=== PATIENT | male | born 1975 | race Two or more races ===

== ENCOUNTER 2016-10-11 18:46 | Inpatient (IN) | payer OTHER, MEDICAID ==
[2016-10-11 19:57] VITALS: BP 144/94
[2016-10-11] MEDS: Morphine Sulfate 2 mg/mL 1mL Syr IVP PRN (20:41)
[2016-10-11] MEDS ORDERED: Albuterol Nebulizer 2.5mg/3mL IH PRN (21:28)
[2016-10-11] MEDS ORDERED: guaiFENesin 200 MG/10 ML UDC PO PRN (21:28)
[2016-10-11] MEDS: metroNIDAZOLE 500mg/NS 100mL 500 MG/100 ML BAG IV SCH (22:19)
[2016-10-11] MEDS: Levofloxacin 500mg/100mL 500 MG/100 ML BAG IV SCH (23:30)
[2016-10-11] MEDS: Atorvastatin Calcium 10 MG TAB PO SCH (23:54)
[2016-10-12] MEDS: Morphine Sulfate 2 mg/mL 1mL Syr IVP PRN ×7 (01:11→20:26)
[2016-10-12] MEDS: metroNIDAZOLE 500mg/NS 100mL 500 MG/100 ML BAG IV SCH ×3 (05:23→20:26)
[2016-10-12] MEDS: INSULIN ASPART, RECOMBINANT 100 UNITS/ML SUBQ SCH ×4 (06:33→21:22)
[2016-10-12 07:32] LABS: INR 1.06 (0.5-1.4); PROTHROMBIN TIME (TEST) 10.5 SECONDS (9.5-11.5)
[2016-10-12 07:50] LABS: % BASOPHILS 0.2 % (0.0-2.0); % EOSINOPHILS 0.3 % (0.0-5.0); % LYMPHOCYTES 12.4 % (20.0-50.0); % MONOCYTES 7.5 % (2.0-10.0); % NEUTROPHILS 79.6 % (40.0-80.0); HEMATOCRIT 38.6 % (39.0-49.0); HEMOGLOBIN 13.5 gm/dL (13.2-17.3); MEAN CELL VOLUME 79.5 fl (80-99); MEAN CORPUSCULAR HEMOGLOBIN 27.8 pg (26.0-30.0); MEAN PLATELET VOLUME 7.6 fl; NEUTROPHILE ABSOLUTE 6.6 Th/cmm (1.8-8.0); PLATELET COUNT 115 Th/cmm (150-400); RED BLOOD COUNT 4.85 Mil/cmm (4.30-5.70); RED CELL DISTRIBUTION WIDTH 14.1 % (11.5-20.0); WHITE BLOOD COUNT 8.2 Th/cmm (4.8-10.8)
[2016-10-12 07:53] LABS: ALKALINE PHOSPHATASE 78 U/L (34-104); ANION GAP 8.5 (7.0-16.0); BILIRUBIN,TOTAL 1.9 mg/dL (0.3-1.0); BUN - UREA NITROGEN 10 mg/dL (7-25); BUN/CREATININE RATIO 16.7; CALCIUM SERUM 9.3 mg/dL (8.6-10.3); CARBON DIOXIDE 26.1 mEq/L (21.0-31.0); CHLORIDE 99 mEq/L (98-107); CREATININE - SERUM 0.6 mg/dL (0.7-1.3); GLUCOSE 181 mg/dL (70-105); MAGNESIUM 1.8 mg/dL (1.9-2.7); POTASSIUM SERUM 3.6 mEq/L (3.5-5.1); SGOT 14 U/L (13-39); SGPT/ALT 19 U/L (7-52); SODIUM SERUM 130 mEq/L (136-145)
[2016-10-12 08:33] LABS: URINE BILIRUBIN SMALL (NEGATIVE); URINE BLOOD SMALL (NEGATIVE); URINE COLOR YELLOW; URINE GLUCOSE (UA) 500 mg/dL (NEGATIVE); URINE KETONE 40 mg/dL (NEGATIVE); URINE PROTEIN TRACE mg/dL (NEGATIVE)
[2016-10-12 08:34] LABS: URINE BACTERIA OCCASIONAL /hpf (NONE SEEN); URINE EPITHELIAL CELLS FEW /lpf (FEW)
[2016-10-12] MEDS ORDERED: Meperidine 50 mg/mL 1mL Syr ONE (08:48)
[2016-10-12] MEDS ORDERED: Midazolam 1mg/ml 2 ml vial IV ONE (08:48)
[2016-10-12] MEDS ORDERED: Lidocaine 2% Gel 5 mL TP ONE (09:08)
[2016-10-12 09:36] LABS: BNP 26.7 pg/mL (5.0-100.0)
--- NOTE | 2016-10-12 11:08 | Consultation ---
REFERRING PHYSICIAN: Dr. Lora. REASON FOR CONSULTATION: Perirectal abscess. Thank you for referring this patient to me. HISTORY OF PRESENT ILLNESS: A 41-year-old male who apparently has had rectal pain for the last 5 days with fever associated. He went to [facility] yesterday and underwent a CT scan, which showed left perirectal abscess. PAST MEDICAL HISTORY: Includes hypertension, diabetes mellitus and hypercholesterolemia. MEDICATIONS: He takes metformin, atorvastatin and losartan. LABORATORY STUDIES: At this facility showed WBC to be normal, platelet count slightly low at 115. The chemistry is within normal limits. His blood sugar was 246 previously. PHYSICAL EXAMINATION: Unremarkable except in the perirectal area where there appears to be some swelling in the left perirectal region as noted in the CT scan. IMPRESSION: 1. Gallstones. 2. Hypertension. 3. Diabetes mellitus. 4. Hypercholesterolemia. 5. Perirectal abscess. PLAN: We will sigmoidoscopy to determine the rectum status for any internal hemorrhoids or any connecting abscess or fistula. We will drain the abscess when located. Informed consent discussed with the patient. JOB# [id number]
--- NOTE | 2016-10-12 12:38 | Operative Report ---
PREOPERATIVE DIAGNOSES: 1. Left perirectal abscess. 2. Cholelithiasis. 3. Diabetes mellitus with poor control. 4. Hypertension. 5. Hypercholesterolemia. POSTOPERATIVE DIAGNOSES: 1. Left perirectal abscess. 2. Cholelithiasis. 3. Diabetes mellitus with poor control. 4. Hypertension. 5. Hypercholesterolemia. OPERATION DONE: 1. Sigmoidoscopy. 2. Left perirectal abscess (?). SURGEON: Saqib Winslow MD ANESTHESIA: General. ANESTHESIOLOGIST: Richard Soriano M.D. PROCEDURE: The patient was given general anesthesia. He was then placed in dorsal lithotomy position. The perineum was prepped. Sigmoidoscopy was done to 15 cm. No internal pathology was noted. Palpation of the perirectal area on the left side in particular as noted on the CT scan showed some questionable fluctuant area. An incision was made over this region and with finger dissection and instrumentation, attempt at unroofing the abscess was done. None was found, however. Palpation was done in all quadrants of the anal region. No fluctuation was noted, that would be suspicious for an abscess. The wound was packed with iodoform gauze and culture was taken. The patient tolerated the procedure well. Plan will be to repeat the CT scan and GI evaluation if necessary. [facility]# [id number] EN
--- NOTE | 2016-10-12 17:09 | Internal Medicine Prog Note ---
Internal Medicine Subjective - Subjective Service Date: 10/12/16 (HNP DICTATED) Internal Medicine Objective - Results Result Diagrams: 10/12/16 06:49 10/12/16 06:49 Recent Labs: Laboratory Last Values WBC 8.2 Th/cmm (4.8-10.8) 10/12/16 06:49 RBC 4.85 Mil/cmm (4.30-5.70) 10/12/16 06:49 Hgb 13.5 gm/dL (13.2-17.3) 10/12/16 06:49 Hct 38.6 % (39.0-49.0) L 10/12/16 06:49 MCV 79.5 fl (80-99) L 10/12/16 06:49 MCH 27.8 pg (26.0-30.0) 10/12/16 06:49 MCHC Differential 35.0 pg (28.0-36.0) 10/12/16 06:49 RDW 14.1 % (11.5-20.0) 10/12/16 06:49 Plt Count 115 Th/cmm (150-400) L 10/12/16 06:49 MPV 7.6 fl 10/12/16 06:49 Neutrophils % 79.6 % (40.0-80.0) 10/12/16 06:49 Lymphocytes % 12.4 % (20.0-50.0) L 10/12/16 06:49 Monocytes % 7.5 % (2.0-10.0) 10/12/16 06:49 Eosinophils % 0.3 % (0.0-5.0) 10/12/16 06:49 Basophils % 0.2 % (0.0-2.0) 10/12/16 06:49 PT 10.5 SECONDS (9.5-11.5) 10/12/16 06:49 INR 1.06 (0.5-1.4) 10/12/16 06:49 PTT (Actin FS) 30.9 SECONDS (26.0-38.0) 10/12/16 06:49 Sodium 130 mEq/L (136-145) L 10/12/16 06:49 Potassium 3.6 mEq/L (3.5-5.1) 10/12/16 06:49 Chloride 99 mEq/L (98-107) 10/12/16 06:49 Carbon Dioxide 26.1 mEq/L (21.0-31.0) 10/12/16 06:49 Anion Gap 8.5 (7.0-16.0) 10/12/16 06:49 BUN 10 mg/dL (7-25) 10/12/16 06:49 Creatinine 0.6 mg/dL (0.7-1.3) L 10/12/16 06:49 Est GFR ( Amer) > 60.0 ml/min 10/12/16 06:49 Est GFR (Non-Af Amer) > 60.0 ml/min 10/12/16 06:49 BUN/Creatinine Ratio 16.7 10/12/16 06:49 Glucose 181 mg/dL (70-105) H 10/12/16 06:49 POC Glucose 195 MG/DL (70 - 105) H 10/12/16 12:42 Hemoglobin A1c % 9.0 % (4.0-6.0) H 10/12/16 06:49 Calcium 9.3 mg/dL (8.6-10.3) 10/12/16 06:49 Magnesium 1.8 mg/dL (1.9-2.7) L 10/12/16 06:49 Total Bilirubin 1.9 mg/dL (0.3-1.0) H 10/12/16 06:49 AST 14 U/L (13-39) 10/12/16 06:49 ALT 19 U/L (7-52) 10/12/16 06:49 Alkaline Phosphatase 78 U/L (34-104) 10/12/16 06:49 B-Natriuretic Peptide 26.7 pg/mL (5.0-100.0) 10/12/16 06:49 Total Protein 7.4 gm/dL (6.0-8.3) 10/12/16 06:49 Albumin 3.6 gm/dL (4.2-5.5) L 10/12/16 06:49 Globulin 3.8 gm/dL 10/12/16 06:49 Albumin/Globulin Ratio 1.0 (1.0-1.8) 10/12/16 06:49 TSH 0.93 uIU/ml (0.34-5.60) 10/12/16 06:49 Urine Source CLEAN C 10/12/16 05:50 Urine Color YELLOW 10/12/16 05:50 Urine Clarity SL. CLOUDY (CLEAR) 10/12/16 05:50 Urine pH 6.0 10/12/16 05:50 Ur Specific [place] 1.025 (1.005-1.030) 10/12/16 05:50 Urine Protein TRACE mg/dL (NEGATIVE) 10/12/16 05:50 Urine Glucose (UA) 500 mg/dL (NEGATIVE) H 10/12/16 05:50 Urine Ketones 40 mg/dL (NEGATIVE) H 10/12/16 05:50 Urine Blood SMALL (NEGATIVE) H 10/12/16 05:50 Urine Nitrate NEGATIVE (NEGATIVE) 10/12/16 05:50 Urine Bilirubin SMALL (NEGATIVE) H 10/12/16 05:50 Urine Urobilinogen 2.0 E.U./dL (0.2 - 1.0) 10/12/16 05:50 Ur Leukocyte Esterase NEGATIVE (NEGATIVE) 10/12/16 05:50 Urine RBC 3-5 /hpf (0-5) 10/12/16 05:50 Urine WBC 6-10 /hpf (0-5) H 10/12/16 05:50 Ur Epithelial Cells FEW /lpf (FEW) 10/12/16 05:50 Urine Bacteria OCCASIONAL /hpf (NONE SEEN) 10/12/16 05:50 - Physical Exam Vitals and I&O: Vital Signs Temp 97.8 F 10/12/16 08:00 Pulse 96 10/12/16 08:45 Resp 18 10/12/16 08:45 BP 129/86 10/12/16 08:00 Pulse Ox 97 10/12/16 08:45 Intake & Output 10/11/16 10/12/16 10/12/16 18:59 06:59 18:59 Intake Total 500 Output Total 450 Balance 50 Weight (lbs) 218 lb Intake: Intake, IV Amount 200 metroNIDAZOLE 500mg/NS 200 100mL 500 mg In 100 ml @ 100 mls/hr IV Q8HR [facility] Rx #:[id number] Oral 300 Output: Urine 450 Other: # Bowel Movements 0 Active Medications: Current Medications Acetaminophen (Tylenol) 650 mg PO Q4HR PRN PRN Reason: Pain or Fever >101 Stop: 12/10/16 21:27 Acetaminophen/Hydrocodone Bitart ([place] 5mg/325mg) 1 tab PO Q4H PRN PRN Reason: Pain (Severe) Stop: 12/10/16 21:27 Albuterol Sulfate (Albuterol 2.5mg/3ml Neb Ud) 2.5 mg IH Q2HR PRN PRN Reason: Shortness of Breath or Wheeze Stop: 12/10/16 21:27 Atorvastatin Calcium (Lipitor) 20 mg PO HS [facility] Stop: 12/10/16 21:29 Last Admin: 10/11/16 23:54 Dose: Not Given Clonidine HCl (Catapres) 0.1 mg PO Q6HR PRN PRN Reason: SBP GREATER THAN 160 Stop: 12/10/16 21:27 Glipizide (Glucotrol) 5 mg PO DAILY [facility] Stop: 12/11/16 08:59 Last Admin: 10/12/16 10:55 Dose: Not Given Guaifenesin (Robitussin) 200 mg PO Q4HR PRN PRN Reason: Cough or Congestion Stop: 12/10/16 21:27 Heparin Sodium (Porcine) (Heparin) 5,000 units SUBQ Q12HR [facility] Stop: 12/11/16 08:59 Last Admin: 10/12/16 10:55 Dose: Not Given Levofloxacin (Levaquin Pb) 500 mg in 100 mls @ 100 mls/hr IV Q24HR [facility] Stop: 12/10/16 22:59 Last Admin: 10/11/16 23:30 Dose: 100 mls/hr Metronidazole (Flagyl) 500 mg in 100 mls @ 100 mls/hr IV Q8HR [facility] Stop: 12/10/16 21:59 Last Admin: 10/12/16 13:43 Dose: 100 mls/hr Insulin Aspart (Novolog) 0 units SUBQ ACHS MARÍA PRN Reason: Protocol Stop: 12/11/16 07:29 Last Admin: 10/12/16 12:22 Dose: Not Given Losartan Potassium (Cozaar) 50 mg PO DAILY [facility] Stop: 12/11/16 08:59 Last Admin: 10/12/16 10:56 Dose: Not Given Meclizine HCl (Antivert) 25 mg PO DAILY PRN PRN Reason: Nausea / Vomiting Stop: 12/10/16 21:27 Metformin HCl (Glucophage) 500 mg PO BID [facility] Stop: 12/11/16 08:59 Last Admin: 10/12/16 10:55 Dose: Not Given Morphine Sulfate (Morphine) 2 mg IVP PRN PRN PRN Reason: Rectal Pain Stop: 10/12/16 20:22 Last Admin: 10/12/16 11:45 Dose: 2 mg Morphine Sulfate (Morphine) 2 mg IVP Q4HR PRN PRN Reason: Pain (Severe) Stop: 12/10/16 21:27 Last Admin: 10/12/16 14:48 Dose: 2 mg Ondansetron HCl (Zofran) 4 mg IV Q8H PRN PRN Reason: Nausea / Vomiting Stop: 12/10/16 21:27 Zolpidem Tartrate (Ambien) 10 mg PO HS PRN PRN Reason: Insomnia Stop: 12/10/16 21:27 Internal Medicine Assmt/Plan - Assessment Assessment: RECTAL PAIN RECTAL ABSCESS FEVER ACUTE UTI HYPONATREMIA
[2016-10-12] MEDS: Sodium Chloride 0.9% 1,000 ML IV SCH (18:07)
[2016-10-12] MEDS: Atorvastatin Calcium 10 MG TAB PO SCH (20:25)
--- NOTE | 2016-10-12 21:08 | History & Physical ---
CHIEF COMPLAINT: Fever and bodyaches. HISTORY OF PRESENT ILLNESS: This is a 41-year-old male who is a direct admission from [facility]. According to the patient, he has been having a 5-day history of body aches and fever associated with rectal abscess. The patient states that he started to develop rectal abscesses on 10/06/2016. The patient took Tylenol, but his fevers were unrelieved. The patient did not take any medical attention until yesterday night. The patient stated that his bodyaches were intolerable and also his fevers. For this reason and due to insurance purposes, the patient is now here at [facility]. PAST MEDICAL HISTORY: Type 2 diabetes, hypertension, hypercholesterolemia. PAST SURGICAL HISTORY: None per patient. SOCIAL HISTORY: Denies smoking, drinking or any illicit drug usage. FAMILY HISTORY: Noncontributory. ALLERGIES: No drug allergies. REVIEW OF SYSTEMS: GENERAL: Denies any chills, any fevers. CARDIOVASCULAR: Denies any chest pain. RESPIRATORY: Denies any shortness of breath. GASTROINTESTINAL: Denies any nausea, vomiting or any abdominal pain. GENITOURINARY: Denies any dysuria. All other systems are reviewed by me and are negative. PHYSICAL EXAMINATION: GENERAL: The patient is awake, alert, no apparent distress. VITAL SIGNS: Temperature 97.8, heart rate 82, blood pressure 129/86, respirations 17, O2 100%. HEENT: Head; normocephalic, atraumatic. NECK: Supple. No mass. LUNGS: Clear bilaterally upon auscultation. HEART: Regular rate and rhythm. No murmurs or gallops. SKIN: Intact to touch. ABDOMEN: Soft, nontender, nondistended. Positive bowel sounds in all 4 quadrants. LABORATORY DATA: WBC 8.2, H and H 13.5 and 38.6, platelet 115. Sodium 130, potassium 3.6, chloride 99, BUN 10, creatinine 0.6. Hemoglobin A1c 9.0. ASSESSMENT: Rectal pain, rectal abscess, fever, hyponatremia, type 2 diabetes, hypertension, hypercholesterolemia, acute urinary tract infection. [facility]# [id number]
[2016-10-12] MEDS: Levofloxacin 500mg/100mL 500 MG/100 ML BAG IV SCH (22:42)
[2016-10-13] MEDS: Morphine Sulfate 2 mg/mL 1mL Syr IVP PRN ×5 (01:27→18:34)
[2016-10-13] MEDS: metroNIDAZOLE 500mg/NS 100mL 500 MG/100 ML BAG IV SCH ×3 (04:26→21:31)
[2016-10-13 07:19] LABS: % BASOPHILS 0.1 % (0.0-2.0); % EOSINOPHILS 0.4 % (0.0-5.0); % LYMPHOCYTES 14.2 % (20.0-50.0); % MONOCYTES 7.5 % (2.0-10.0); % NEUTROPHILS 77.8 % (40.0-80.0); HEMATOCRIT 38.8 % (39.0-49.0); HEMOGLOBIN 13.1 gm/dL (13.2-17.3); MEAN CELL VOLUME 80.5 fl (80-99); MEAN CORPUSCULAR HEMOGLOBIN 27.3 pg (26.0-30.0); MEAN CORPUSCULAR HGB CONC 33.8 pg (28.0-36.0); MEAN PLATELET VOLUME 7.9 fl; NEUTROPHILE ABSOLUTE 5.4 Th/cmm (1.8-8.0); PLATELET COUNT 131 Th/cmm (150-400); RED BLOOD COUNT 4.81 Mil/cmm (4.30-5.70); RED CELL DISTRIBUTION WIDTH 14.3 % (11.5-20.0); WHITE BLOOD COUNT 6.9 Th/cmm (4.8-10.8)
[2016-10-13 07:31] LABS: ANION GAP 6.3 (7.0-16.0); BUN - UREA NITROGEN 10 mg/dL (7-25); BUN/CREATININE RATIO 16.7; CALCIUM SERUM 9.4 mg/dL (8.6-10.3); CARBON DIOXIDE 27.5 mEq/L (21.0-31.0); CHLORIDE 100 mEq/L (98-107); CREATININE - SERUM 0.6 mg/dL (0.7-1.3); GLUCOSE 170 mg/dL (70-105); POTASSIUM SERUM 3.8 mEq/L (3.5-5.1); SODIUM SERUM 130 mEq/L (136-145)
[2016-10-13] MEDS: INSULIN ASPART, RECOMBINANT 100 UNITS/ML SUBQ SCH ×4 (08:00→21:50)
[2016-10-13] MEDS ORDERED: IOHEXOL 300MG/ML 100 ML VIAL IVP ONE (09:27)
--- NOTE | 2016-10-13 11:35 | Diagnostic Imaging Report ---
CT scan abdomen and pelvis with intravenous contrast HISTORY: Perirectal abscess, pain Total DLP equals 913 CTDI equals 12.6 Following administration of intravenous contrast, axial sections were obtained from the xiphoid process down to the pubic symphysis. Liver exhibits homogeneous parenchyma. No focal lesions. The spleen is somewhat generous in size. No abnormality seen in the region of the pancreas. No focal renal lesions. The exam demonstrates heterogeneous density in the left perirectal region. Air collections noted presumably related to recent surgical intervention. A small focus of radiodensity also noted within the left periaortic rectal region within the subcutaneous fat. Findings may be associated with residual radiopaque contrast. No discrete loculated fluid collection is seen. Specifically, no discrete abscess can be outlined. The remainder of the pelvis demonstrates preservation of normal fat planes. No abnormal soft tissue masses or abnormal fluid collections. No abnormality seen in the region of the appendix. There is a rather markedly distended urinary bladder. IMPRESSION: 1. Heterogeneous density within the left perirectal/perianal region associated with loculated air collections presumably related to recent surgical intervention. No discrete loculated fluid collections are seen. 2. No other intra-abdominal acute abnormalities 3. Somewhat generous splenic size. The significance should be correlated clinically.
--- NOTE | 2016-10-13 11:53 | Diagnostic Imaging Report ---
Portable chest x-ray History: Cough Allowing for portable technique the heart size is normal. No focal pulmonary parenchymal processes. No hilar or mediastinal abnormalities. Impression: No acute abnormalities.
--- NOTE | 2016-10-13 12:25 | Internal Medicine Prog Note ---
Internal Medicine Subjective - Subjective Service Date: 10/13/16 (patient awake, alert, c/o rectal pain s/p i+d patient had a episode of x1 fever lastnight of 101 ) Patient seen and examined:: with staff Internal Medicine Objective - Results Result Diagrams: 10/13/16 05:50 10/13/16 05:50 Recent Labs: Laboratory Last Values WBC 6.9 Th/cmm (4.8-10.8) 10/13/16 05:50 RBC 4.81 Mil/cmm (4.30-5.70) 10/13/16 05:50 Hgb 13.1 gm/dL (13.2-17.3) L 10/13/16 05:50 Hct 38.8 % (39.0-49.0) L 10/13/16 05:50 MCV 80.5 fl (80-99) 10/13/16 05:50 MCH 27.3 pg (26.0-30.0) 10/13/16 05:50 MCHC Differential 33.8 pg (28.0-36.0) 10/13/16 05:50 RDW 14.3 % (11.5-20.0) 10/13/16 05:50 Plt Count 131 Th/cmm (150-400) L 10/13/16 05:50 MPV 7.9 fl 10/13/16 05:50 Neutrophils % 77.8 % (40.0-80.0) 10/13/16 05:50 Lymphocytes % 14.2 % (20.0-50.0) L 10/13/16 05:50 Monocytes % 7.5 % (2.0-10.0) 10/13/16 05:50 Eosinophils % 0.4 % (0.0-5.0) 10/13/16 05:50 Basophils % 0.1 % (0.0-2.0) 10/13/16 05:50 ESR 50 mm/hr (0-20) H 10/13/16 05:50 PT 10.5 SECONDS (9.5-11.5) 10/12/16 06:49 INR 1.06 (0.5-1.4) 10/12/16 06:49 PTT (Actin FS) 30.9 SECONDS (26.0-38.0) 10/12/16 06:49 Sodium 130 mEq/L (136-145) L 10/13/16 05:50 Potassium 3.8 mEq/L (3.5-5.1) 10/13/16 05:50 Chloride 100 mEq/L (98-107) 10/13/16 05:50 Carbon Dioxide 27.5 mEq/L (21.0-31.0) 10/13/16 05:50 Anion Gap 6.3 (7.0-16.0) L 10/13/16 05:50 BUN 10 mg/dL (7-25) 10/13/16 05:50 Creatinine 0.6 mg/dL (0.7-1.3) L 10/13/16 05:50 Est GFR ( Amer) > 60.0 ml/min 10/13/16 05:50 Est GFR (Non-Af Amer) > 60.0 ml/min 10/13/16 05:50 BUN/Creatinine Ratio 16.7 10/13/16 05:50 Glucose 170 mg/dL (70-105) H 10/13/16 05:50 POC Glucose 168 MG/DL (70 - 105) H 10/13/16 11:28 Hemoglobin A1c % 9.0 % (4.0-6.0) H 10/12/16 06:49 Calcium 9.4 mg/dL (8.6-10.3) 10/13/16 05:50 Magnesium 1.8 mg/dL (1.9-2.7) L 10/12/16 06:49 Total Bilirubin 1.9 mg/dL (0.3-1.0) H 10/12/16 06:49 AST 14 U/L (13-39) 10/12/16 06:49 ALT 19 U/L (7-52) 10/12/16 06:49 Alkaline Phosphatase 78 U/L (34-104) 10/12/16 06:49 B-Natriuretic Peptide 26.7 pg/mL (5.0-100.0) 10/12/16 06:49 Total Protein 7.4 gm/dL (6.0-8.3) 10/12/16 06:49 Albumin 3.6 gm/dL (4.2-5.5) L 10/12/16 06:49 Globulin 3.8 gm/dL 10/12/16 06:49 Albumin/Globulin Ratio 1.0 (1.0-1.8) 10/12/16 06:49 TSH 0.93 uIU/ml (0.34-5.60) 10/12/16 06:49 Urine Source CLEAN C 10/12/16 05:50 Urine Color YELLOW 10/12/16 05:50 Urine Clarity SL. CLOUDY (CLEAR) 10/12/16 05:50 Urine pH 6.0 10/12/16 05:50 Ur Specific [place] 1.025 (1.005-1.030) 10/12/16 05:50 Urine Protein TRACE mg/dL (NEGATIVE) 10/12/16 05:50 Urine Glucose (UA) 500 mg/dL (NEGATIVE) H 10/12/16 05:50 Urine Ketones 40 mg/dL (NEGATIVE) H 10/12/16 05:50 Urine Blood SMALL (NEGATIVE) H 10/12/16 05:50 Urine Nitrate NEGATIVE (NEGATIVE) 10/12/16 05:50 Urine Bilirubin SMALL (NEGATIVE) H 10/12/16 05:50 Urine Urobilinogen 2.0 E.U./dL (0.2 - 1.0) 10/12/16 05:50 Ur Leukocyte Esterase NEGATIVE (NEGATIVE) 10/12/16 05:50 Urine RBC 3-5 /hpf (0-5) 10/12/16 05:50 Urine WBC 6-10 /hpf (0-5) H 10/12/16 05:50 Ur Epithelial Cells FEW /lpf (FEW) 10/12/16 05:50 Urine Bacteria OCCASIONAL /hpf (NONE SEEN) 10/12/16 05:50 - Physical Exam Vitals and I&O: Vital Signs Temp 98.2 F 10/13/16 08:00 Pulse 94 10/13/16 09:00 Resp 20 10/13/16 08:00 BP 123/78 10/13/16 09:00 Pulse Ox 98 10/13/16 08:00 Intake & Output 10/12/16 10/13/16 10/13/16 18:59 06:59 18:59 Intake Total 950 700 Balance 950 700 Intake: Intake, IV Amount 100 300 Levofloxacin 500mg/100mL 100 500 mg In 100 ml @ 100 mls/hr IV Q24HR [facility] Rx#: [id number] metroNIDAZOLE 500mg/NS 100 200 100mL 500 mg In 100 ml @ 100 mls/hr IV Q8HR [facility] Rx #:[id number] Oral 850 400 Other: # Voids 3 4 Active Medications: Current Medications Acetaminophen (Tylenol) 650 mg PO Q4HR PRN PRN Reason: Pain or Fever >101 Stop: 12/10/16 21:27 Last Admin: 10/12/16 20:25 Dose: 650 mg Acetaminophen/Hydrocodone Bitart ([place] 5mg/325mg) 1 tab PO Q4H PRN PRN Reason: Pain (Severe) Stop: 12/10/16 21:27 Albuterol Sulfate (Albuterol 2.5mg/3ml Neb Ud) 2.5 mg IH Q2HR PRN PRN Reason: Shortness of Breath or Wheeze Stop: 12/10/16 21:27 Atorvastatin Calcium (Lipitor) 20 mg PO HS [facility] Stop: 12/10/16 21:29 Last Admin: 10/12/16 20:25 Dose: 20 mg Clonidine HCl (Catapres) 0.1 mg PO Q6HR PRN PRN Reason: SBP GREATER THAN 160 Stop: 12/10/16 21:27 Glipizide (Glucotrol) 5 mg PO BID [facility] Stop: 12/12/16 08:59 Last Admin: 10/13/16 09:00 Dose: Not Given Guaifenesin (Robitussin) 200 mg PO Q4HR PRN PRN Reason: Cough or Congestion Stop: 12/10/16 21:27 Heparin Sodium (Porcine) (Heparin) 5,000 units SUBQ Q12HR [facility] Stop: 12/11/16 08:59 Last Admin: 10/13/16 09:41 Dose: 5,000 units Levofloxacin (Levaquin Pb) 500 mg in 100 mls @ 100 mls/hr IV Q24HR [facility] Stop: 12/10/16 22:59 Last Infusion: 10/12/16 23:45 Dose: Infused Metronidazole (Flagyl) 500 mg in 100 mls @ 100 mls/hr IV Q8HR [facility] Stop: 12/10/16 21:59 Last Infusion: 10/13/16 05:26 Dose: Infused Sodium Chloride (Nacl 0.9%) 1,000 mls @ 50 mls/hr IV .Q20H [facility] Stop: 12/11/16 17:14 Last Admin: 10/12/16 18:07 Dose: 50 mls/hr Insulin Aspart (Novolog) 0 units SUBQ ACHS MARÍA PRN Reason: Protocol Stop: 12/11/16 07:29 Last Admin: 10/13/16 08:00 Dose: Not Given Losartan Potassium (Cozaar) 50 mg PO DAILY [facility] Stop: 12/11/16 08:59 Last Admin: 10/13/16 09:00 Dose: Not Given Meclizine HCl (Antivert) 25 mg PO DAILY PRN PRN Reason: Nausea / Vomiting Stop: 12/10/16 21:27 Metformin HCl (Glucophage) 500 mg PO BID [facility] Stop: 12/11/16 08:59 Last Admin: 10/13/16 09:00 Dose: Not Given Morphine Sulfate (Morphine) 2 mg IVP Q4HR PRN PRN Reason: Pain (Severe) Stop: 12/10/16 21:27 Last Admin: 10/13/16 09:41 Dose: 2 mg Ondansetron HCl (Zofran) 4 mg IV Q8H PRN PRN Reason: Nausea / Vomiting Stop: 12/10/16 21:27 Zolpidem Tartrate (Ambien) 10 mg PO HS PRN PRN Reason: Insomnia Stop: 12/10/16 21:27 General: alert HEENT: NC/AT, PERRLA Neck: Supple Lungs: CTAB Cardiovascular: RRR, Normal S1, Normal S2, without murmur Abdomen: soft non-tender Internal Medicine Assmt/Plan - Assessment Assessment: RECTAL PAIN RECTAL ABSCESS FEVER ACUTE UTI HYPONATREMIA - Plan Plan: cbc/bmp in am monitor for fever dc tomorrow if afebrile.
[2016-10-13] MEDS: POLYETHYLENE GLYCOL 3350 17 GM PACK PO SCH (16:49)
[2016-10-13] MEDS: Sodium Chloride 0.9% 1,000 ML IV SCH (18:35)
[2016-10-13] MEDS: Atorvastatin Calcium 10 MG TAB PO SCH (21:30)
[2016-10-13] MEDS: Levofloxacin 500mg/100mL 500 MG/100 ML BAG IV SCH (23:13)
[2016-10-14] MEDS: Morphine Sulfate 2 mg/mL 1mL Syr IVP PRN ×5 (01:02→20:52)
[2016-10-14] MEDS: metroNIDAZOLE 500mg/NS 100mL 500 MG/100 ML BAG IV SCH ×2 (05:08→14:00)
[2016-10-14] MEDS: Hydrocodone/APAP 5mg/325mg Tab PO PRN ×2 (06:41→12:01)
[2016-10-14] MEDS: INSULIN ASPART, RECOMBINANT 100 UNITS/ML SUBQ SCH ×3 (06:47→21:37)
[2016-10-14 07:23] LABS: % BASOPHILS 0.7 % (0.0-2.0); % EOSINOPHILS 0.2 % (0.0-5.0); % LYMPHOCYTES 9.5 % (20.0-50.0); % NEUTROPHILS 81.6 % (40.0-80.0); HEMATOCRIT 38.8 % (39.0-49.0); HEMOGLOBIN 13.5 gm/dL (13.2-17.3); MEAN CELL VOLUME 80.1 fl (80-99); MEAN CORPUSCULAR HEMOGLOBIN 27.9 pg (26.0-30.0); MEAN CORPUSCULAR HGB CONC 34.9 pg (28.0-36.0); MEAN PLATELET VOLUME 7.5 fl; NEUTROPHILE ABSOLUTE 6.6 Th/cmm (1.8-8.0); PLATELET COUNT 136 Th/cmm (150-400); RED BLOOD COUNT 4.84 Mil/cmm (4.30-5.70); RED CELL DISTRIBUTION WIDTH 14.1 % (11.5-20.0); WHITE BLOOD COUNT 8.1 Th/cmm (4.8-10.8)
[2016-10-14] MEDS: POLYETHYLENE GLYCOL 3350 17 GM PACK PO SCH (08:33)
[2016-10-14] MEDS ORDERED: Menthol/Zinc Oxide Oint 113gm Tube TP SCH (09:00)
[2016-10-14 09:20] LABS: ANION GAP 10.6 (7.0-16.0); BUN - UREA NITROGEN 11 mg/dL (7-25); CALCIUM SERUM 9.1 mg/dL (8.6-10.3); CARBON DIOXIDE 24.2 mEq/L (21.0-31.0); CHLORIDE 99 mEq/L (98-107); CREATININE - SERUM 0.5 mg/dL (0.7-1.3); GLUCOSE 203 mg/dL (70-105); POTASSIUM SERUM 3.8 mEq/L (3.5-5.1); SODIUM SERUM 130 mEq/L (136-145)
[2016-10-14] MEDS: Atorvastatin Calcium 10 MG TAB PO SCH (20:52)
--- NOTE | 2016-10-14 23:47 | Admit Criteria Form ---
Admit Criteria Forms - Admit Criteria Diagnosis: GASTROINTESTINAL BLEEDING, LOWER Clinical Indications for Admission to Inpatient Care ( Place 'X' for any and all applicable criteria): Admission is indicated for ANY ONE of the following(1)(2)(3)(4)(5): [ ]I. Active gross bleeding per rectum [ X]II. Inpatient admission required rather than observation care (Also use Gastrointestinal Bleeding, Lower: Observation Care as appropriate) because of ANY ONE of the following: [ ]a) Hemodynamic instability that is severe or persistent [ ]b) Anemia requiring inpatient admission as indicated by ALL of the following: [ ]1) Presence of significant clinical finding indicated by ANY ONE of the following: [ ]A. Tachycardia for age [ ]B. Orthostatic vital sign changes [ ]C. Cognitive impairment [ ]D. Heart failure [ ]E. Chest pain [ ]F. Exertional dyspnea [ ]G. Other findings suggesting inadequate perfusion (eg, peripheral or myocardial ischemia, end organ dysfunction) [ ]2) Initial (eg, emergency department, observation care) treatment with transfusion or volume replacement is judged inappropriate (due to severity of the finding) or has been ineffective [X ]c) Severe pain requiring acute inpatient management [ ]d) Absent bowel sounds with complete ileus [ ]e) Signs of intestinal obstruction or peritonitis [A] [ ]f) High-risk low platelet count [ ]g) Severe electrolyte abnormalities requiring inpatient care [ ]h) Acute renal failure [ ]i) High fever or infection requiring inpatient admission as indicated by ANY ONE of the following(8)(9): [ ]1) Appropriate outpatient or observation care antimicrobial treatment unavailable, not effective, or not feasible Documented bacteremia [ ]2) Documented bacteremia [ ]3) Temperature greater than 104.9 degrees F ( 40.5 degrees C) (oral) [ ]4) Temperature greater than 103.1 degrees F ( 39.5 degrees C) (oral) or less than 96.8 degrees F (36 degrees C) (rectal) that does not respond to all emergency treatment measures [ ]j) IV fluid to replace significant ongoing losses ( greater than 3 L/m2 per day) [ ]k) Immediate inpatient surgery needed [ ]l) Parenteral nutrition regimen that must be implemented on inpatient basis [X ]m) Other condition, treatment or monitoring requiring inpatient admission [ ]III. Unstable comorbid illness (renal, hepatic, pulmonary, hematologic, neurologic, or cardiac) [ ]IV. Failure to control bleeding after colonoscopy [ ]V. Coagulopathy [ ]. Suspected or known ischemic colitis(6) [ ]VII. Previous aortic graft placement or known aortic aneurysm Extended stay beyond goal length of stay may be needed for(3)(4)(28): [ ]a) Emergency surgery [ ]b) Coagulation abnormalities(26) [ ]c) Recurrent or persistent bleeding, continued vital sign instability(27)( 28) [ ]d) Active comorbidities (eg, renal insufficiency, heart failure, pre- existing liver disease) The original [employer] content created by [employer] has been revised. The portions of the content which have been revised are identified through the use of italic text or in bold, and [facility] has neither reviewed nor approved the modified material. All other unmodified content is copyright [employer]. Please see references footnoted in the original [employer] edition 2016 Admit Criteria Met?: Yes
--- NOTE | 2016-10-16 00:40 | Discharge Summary ---
CHIEF COMPLAINT: Fever and generalized pain. FINAL DIAGNOSES: Rectal pain, rectal abscess, status post incision and drainage, fever, persistent diabetes, hypertension, hypercholesterolemia, and urinary tract infection. HISTORY: This is a 41-year-old male who was seen initially at [facility] ER secondary to fever, not relieved with Tylenol. On CT, it showed possible rectal abscess. The patient was transferred secondary to insurance issues. PHYSICAL EXAMINATION: VITAL SIGNS: Blood pressure 123/76, respiration 19, pulse 85, temperature 98.8, and T-max 101.2. GENERAL: Alert ____ young male. NECK: Supple. No mass. LUNGS: Equal breath sounds, otherwise clear to auscultation. HEART: Regular rate and rhythm without appreciable murmurs. ABDOMEN: Soft and nontender. EXTREMITIES: No clubbing or cyanosis. /RECTAL: The patient with a dressing. HOSPITAL COURSE: The patient was admitted to medical floor. The patient was referred to Dr. Cerrato who did exploratory surgery and drainage on the above lesion. The patient was continued on IV antibiotic, initially on Levaquin as well as Flagyl. This was brought into [facility]. The patient was transferred to [facility] secondary to insurance issues with his HMO. CONDITION ON DISCHARGE: The patient to be transferred under ____, the hospitalist for [facility]. The patient is being transferred. JOB# [id number]
== END 2016-10-15 00:57 | DRG 345 ==
LOC: MSI 18:46
PROVIDERS: ADMIT Internal Medicine; ATTEND Internal Medicine
PROC: 0DJD8ZZ Inspection of Lower Intestinal Tract, Via Natural or Artificial Opening Endoscopic (ICD-10-PCS; principal; 2016-10-12)
PROC: 0D9P0ZZ Drainage of Rectum, Open Approach (ICD-10-PCS; 2016-10-12)
DX: K61.1 Rectal abscess (principal); N39.0 Urinary tract infection, site not specified; E11.65 Type 2 diabetes mellitus with hyperglycemia; I10 Essential (primary) hypertension; E87.1 Hypo-osmolality and hyponatremia; E78.00 Pure hypercholesterolemia, unspecified; K80.20 Calculus of gallbladder without cholecystitis without obstruction; R50.9 Fever, unspecified; E78.5 Hyperlipidemia, unspecified; Z79.84 Long term (current) use of oral hypoglycemic drugs
CPT/HCPCS: 36415-UA; 71010-TC; 80048-TC; 80053-TC; 81001-TC; 82948-90; 83036-90; 83735-TC; 83880-TC; 84443-TC; 85025-TC; 85610-TC; 85652-TC; 87070-90; 87075-90; 87205-90; 90799; 94760; J1644; J1815; J1956; J2001; J2250; J2270; J2543; J2704; J7030; Q9967; V2790; X6024; Z7610